=== PATIENT | male | born 1935 | race Caucasian/White ===

== ENCOUNTER → 2018-02-05 | Outpatient (CLI) | payer MEDICARE | END | disposition home or self-care (01) | LOC: CFH 14:39 | PROVIDERS: ATTEND Internal Medicine Nephrology | DX: I71.4 Abdominal aortic aneurysm, without rupture (principal); N26.1 Atrophy of kidney (terminal); N18.3 Chronic kidney disease, stage 3 (moderate) | CPT/HCPCS: 76770 ==

== ENCOUNTER → 2018-02-06 | Outpatient (CLI) | payer MEDICARE ==
[2018-02-06 12:45] LABS: MICROSCOPIC NOT IND
[2018-02-06 12:51] LABS: CHLORIDE 101 mmol/L (98-107); CULTURE INDICATED? NO
[2018-02-06 12:57] LABS: ALBUMIN 3.9 g/dL (3.4-5.0); ANION GAP 7 mmol/L (5-15); CALCIUM 9.2 mg/dL (8.5-10.1); CREATININE 1.53 mg/dL (0.7-1.3)
== END | disposition home or self-care (01) ==
LOC: CFH 10:25
PROVIDERS: ATTEND Internal Medicine Nephrology
DX: N18.3 Chronic kidney disease, stage 3 (moderate) (principal)
CPT/HCPCS: 36415; 80069; 81003; 82043; 82306; 82570; 83735; 83970; 84156; 84550

== ENCOUNTER → 2019-10-01 | Outpatient (CLI) | payer MEDICARE ==
[~2019-10-01] MED LIST: REGADENOSON 0.4 MG/5 ML SYRINGE ONE
== END | disposition home or self-care (01) ==
LOC: CFH 08:01
PROVIDERS: ATTEND Internal Medicine Cardiovascular Disease
DX: I21.29 ST elevation (STEMI) myocardial infarction involving other sites (principal); I21.09 ST elevation (STEMI) myocardial infarction involving other coronary artery of anterior wall; I10 Essential (primary) hypertension
CPT/HCPCS: 78452; 93017; A9502; J2785

== ENCOUNTER 2020-10-16 09:03 | Day surgery (SDC) | payer MEDICARE ==
[~2020-10-16] VITALS: Ht 170.2 cm; Wt 74.1 kg
[2020-10-16] MEDS ORDERED: SODIUM CHLORIDE 0.9% 1,000 ML IV SCH (09:30)
[2020-10-16] MEDS ORDERED: PLEASE ENTER HEIGHT AND WEIGHT MC SCH (09:30)
[2020-10-16] MEDS ORDERED: VANCOMYCIN PMX 1GM/200ML 200 ML IVPB SCH (09:30)
[2020-10-16] MEDS ORDERED: LISI5TAB7 PO (09:34)
[2020-10-16] MEDS ORDERED: INSU100C5 SQ-INSULIN (09:34)
[2020-10-16] MEDS ORDERED: ASPI-1026 PO (09:34)
[2020-10-16] MEDS ORDERED: INSU100V8 SQ (09:34)
[2020-10-16] MEDS ORDERED: VIT1CAPS42 PO (09:34)
[2020-10-16] MEDS ORDERED: OMEG1CAP23 PO (09:34)
[2020-10-16] MEDS ORDERED: METO25TA91 PO (09:34)
[2020-10-16] MEDS ORDERED: CHOL10002 PO (09:34)
[2020-10-16] MEDS ORDERED: AMLO-150 PO (09:34)
[2020-10-16] MEDS ORDERED: AMIO200T42 PO (09:34)
[2020-10-16 09:36] VITALS: BP 143/77
[2020-10-16 10:07] LABS: BASOPHILS % (AUTO) 1 % (0-1); EOSINOPHILS % (AUTO) 4 % (1-7); LYMPHOCYTES % (AUTO) 19 % (22-44); MEAN CORPUSCULAR HEMOGLOBIN 32.3 pg (27.5-34.5); MEAN CORPUSCULAR HGB CONC 35.2 g/dL (33.2-36.2); MEAN PLATELET VOLUME 8.3 fL (7.4-10.4); MONOCYTES % (AUTO) 6 % (2-9); NEUTROPHILS % (AUTO) 70 % (42-75); PLATELET COUNT 181 x10^3/uL (130-400); RED CELL DISTRIBUTION WIDTH 13.2 % (9.4-14.8)
[2020-10-16 10:08] LABS: ALANINE AMINOTRANSFERASE 32 U/L (12-78); ALBUMIN 3.9 g/dL (3.4-5.0); ANION GAP 9 mmol/L (5-15); CHLORIDE 114 mmol/L (98-107); CHOLESTEROL, TOTAL 114 mg/dL (140-239); CREATININE 1.14 mg/dL (0.7-1.3); MD NO; TRIGLYCERIDES 137 mg/dL (50-200); VLDL CHOLESTEROL 27 mg/dL (0-25)
[2020-10-16 10:10] LABS: ALKALINE PHOSPHATASE 113 U/L (45-117); BILIRUBIN,TOTAL 0.7 mg/dL (0.2-1.0); CHOL/HDL RATIO 3.2; HDL CHOL % 32 % (26-37); HDL CHOLESTEROL (DIRECT) 36 mg/dL (40-60); LDL CHOLESTEROL,CALCULATED 51 mg/dL (54-169); LDL/HDL RATIO 1.4 (0.5-3.0); TOTAL PROTEIN 7.1 g/dL (6.4-8.2)
[2020-10-16] MEDS ORDERED: CEFAZOLIN 1,000 MG ONE (10:26)
[2020-10-16] MEDS ORDERED: MIDAZOLAM 1 MG/ML, 5ML ONE (10:26)
[2020-10-16] MEDS ORDERED: LIDOCAINE 2%, 20ML ONE (10:26)
[2020-10-16] MEDS ORDERED: CEFAZOLIN PMX 1GM/50ML 0 ML ONE (10:26)
[2020-10-16] MEDS ORDERED: FENTANYL PF 100 MCG/2ML ONE (10:26)
[2020-10-16] MEDS ORDERED: VANCOMYCIN PMX 1GM/200ML 200 ML ONE (10:28)
[2020-10-16] MEDS ORDERED: VANCOMYCIN 500 MG ONE (10:28)
== END 2020-10-16 12:52 | disposition home or self-care (01) ==
LOC: CACL 09:03
PROVIDERS: ATTEND Internal Medicine Clinical Cardiac Electrophysiology
DX: Z45.010 Encounter for checking and testing of cardiac pacemaker pulse generator [battery] (principal); I48.0 Paroxysmal atrial fibrillation; I42.9 Cardiomyopathy, unspecified; I25.10 Atherosclerotic heart disease of native coronary artery without angina pectoris; E78.2 Mixed hyperlipidemia; E11.22 Type 2 diabetes mellitus with diabetic chronic kidney disease; I12.9 Hypertensive chronic kidney disease with stage 1 through stage 4 chronic kidney disease, or unspecified chronic kidney disease; N18.9 Chronic kidney disease, unspecified; J44.9 Chronic obstructive pulmonary disease, unspecified; I73.9 Peripheral vascular disease, unspecified; Z79.4 Long term (current) use of insulin; Z79.899 Other long term (current) drug therapy; Z88.0 Allergy status to penicillin
CPT/HCPCS: 33228; 36415; 71046; 80053; 80061; 85025; 99156; C1785; J2250; J3010; J3370; J0690

== ENCOUNTER 2021-05-03 08:48 | Outpatient (CLI) | payer MEDICARE ==
[~2021-05-03 08:48] MED LIST changes: +AMIO200T42 PO; +AMLO-150 PO; +ASPI-1026 PO; +CHOL-33 PO; +INSU100C5 SQ-INSULIN; +INSU100V8 SQ; +LISI5TAB7 PO; +METO25TA91 PO; +OMEG1CAP23 PO; -REGADENOSON 0.4 MG/5 ML SYRINGE ONE; +VIT1CAPS42 PO
== END 2021-05-03 23:59 | disposition home or self-care (01) ==
LOC: CVU 08:48
PROVIDERS: ATTEND Internal Medicine Cardiovascular Disease
DX: I71.4 Abdominal aortic aneurysm, without rupture (principal)
CPT/HCPCS: 93978